=== PATIENT | male | born 1955 ===

== ENCOUNTER 2024-02-29 12:15 | Inpatient (IN) | payer OTHER ==
[~2024-02-29] VITALS: Ht 172.7 cm; Wt 99.8 kg
[2024-02-29 14:02] LABS: INR 1.06; PARTIAL THROMBOPLASTIN TIME 24.8 SECONDS (22.0-34.0); PROTHROMBIN TIME 11.5 SECONDS (9.0-11.5)
[2024-02-29] MEDS ORDERED: LABETALOL HCL200 MG PO (14:23)
[2024-02-29] MEDS ORDERED: HYDRALAZINE HCL50 MG PO (14:23)
[2024-02-29] MEDS ORDERED: [UNRECOGNIZED DRUG - OTHER] (14:25)
[2024-02-29] MEDS ORDERED: [UNRECOGNIZED DRUG - OTHER] (14:26)
[2024-02-29] MEDS ORDERED: SERTRALINE20 MG/1 ML (14:26)
[2024-02-29] MEDS ORDERED: TRAZODONE (14:27)
[2024-02-29 14:28] VITALS: BP 140/80
[2024-03-17] MEDS ORDERED: CEFAZOLIN SODIUM 2,000 MG in 0.9 % SODIUM CHLORIDE 100 ML IV ONE (12:45)
[2024-03-17] MEDS ORDERED: CEFAZOLIN SODIUM 1,000 MG VIAL IV SCH (14:04)
[2024-03-17] MEDS ORDERED: MORPHINE SULFATE 4 MG/ML CARTRIDGE IV PRN (14:15)
[2024-03-17] MEDS ORDERED: SUGAMMADEX SODIUM 200 MG/2 ML VIAL IV ONE (14:45)
[2024-03-17] MEDS ORDERED: MORPHINE SULFATE 4 MG/ML VIAL IV ONE ×2 (15:10→15:40)
[2024-03-17] MEDS ORDERED: ENALAPRILAT DIHYDRATE 1.25 MG/ML VIAL IV ONE ×2 (15:40→16:10)
[2024-03-17 17:00] VITALS: BP 168/84; O2SAT 95
[2024-03-17] MEDS ORDERED: ENOXAPARIN SODIUM 40 MG/0.4 ML SYRINGE SUBCUTANEO SCH (17:00)
[2024-03-17] MEDS ORDERED: ACETAMINOPHEN 500 MG GEL..CAP PO SCH (18:00)
[2024-03-17] MEDS ORDERED: TRAZODONE HCL 50 MG TABLET PO SCH (21:00)
[2024-03-18] VITALS: BP 170/75; O2SAT 97
[2024-03-18] MEDS ORDERED: ENALAPRILAT DIHYDRATE 1.25 MG/ML VIAL IV PRN (01:00)
[2024-03-18 08:00] VITALS: BP 179/85; O2SAT 99
[2024-03-18] MEDS ORDERED: SERTRALINE HCL 25 MG TABLET PO SCH (09:00)
[2024-03-18] MEDS ORDERED: hydrALAZINE HCL 50 MG TABLET PO SCH (09:00)
[2024-03-18] MEDS ORDERED: IRBESARTAN 300 MG TABLET PO SCH (09:00)
[2024-03-18] MEDS ORDERED: LABETALOL HCL 200 MG TABLET PO SCH (09:00)
== END 2024-03-18 14:29 | disposition home or self-care (01) | DRG 327 ==
LOC: SURG 03-17 05:43 → O/R 03-17 05:43 → SURH 03-17 07:00 → SURG 03-17 09:48 → SURH 03-17 12:15 → SURG 03-18 14:29
PROVIDERS: ADMIT Surgery; ATTEND Surgery
PROC: 8E0W4CZ Robotic Assisted Procedure of Trunk Region, Percutaneous Endoscopic Approach (ICD-10-PCS; 2024-03-17)
PROC: 0BQT4ZZ Repair Diaphragm, Percutaneous Endoscopic Approach (ICD-10-PCS; principal; 2024-03-17 07:00)
DX: K43.9 Ventral hernia without obstruction or gangrene (principal); K44.0 Diaphragmatic hernia with obstruction, without gangrene; Z20.822 Contact with and (suspected) exposure to COVID-19
CPT/HCPCS: 43281; S2900